=== PATIENT | male | born 2000 | race African-American/Black ===

== ENCOUNTER 2018-08-09 00:13 | Emergency (ER) | payer MEDICAID ==
[~2018-08-09] VITALS: Ht 195.6 cm; Wt 163.6 kg
[2018-08-09] MEDS ORDERED: ONDANSETRON HCL 4MG TABLET PO ONE (03:15)
[2018-08-09] MEDS: HYDROCODONE/APAP 7.5/325MG 1 TAB TABLET PO PRN ×2 (03:20→03:21)
[2018-08-09 05:47] VITALS: BP 125/85
== END 2018-08-09 06:01 | disposition home or self-care (01) ==
LOC: ER 00:13
DX: S46.912A Strain of unspecified muscle, fascia and tendon at shoulder and upper arm level, left arm, initial encounter (principal); M54.2 Cervicalgia; V49.49XA Driver injured in collision with other motor vehicles in traffic accident, initial encounter; Y93.89 Activity, other specified; Y92.410 Unspecified street and highway as the place of occurrence of the external cause
CPT/HCPCS: 73030; 99284; Q0162; Z7610

== ENCOUNTER 2019-01-12 23:17 | Emergency (ER) | payer MEDICAID ==
[~2019-01-12] VITALS: Ht 195.6 cm; Wt 129.0 kg
[2019-01-13] MEDS ORDERED: SODIUM CHLORIDE 0.9% 1,000 ML IV ONE (02:15)
[2019-01-13] MEDS ORDERED: ONDANSETRON HCL 4MG/2ML INJ IV STA (02:15)
[2019-01-13] MEDS ORDERED: MORPHINE SULFATE 4 MG/ML CPJ (NOT FOR IM USE) IV STA (02:15)
[2019-01-13 02:31] LABS: BASOPHILS % 0.7 % (0.0-2.0); HEMATOCRIT. 44.2 % (42.0-52.0); LYMPHOCYTES % 22.4 % (20.0-50.0); MEAN CORPUSCULAR HEMOGLOBIN 26.2 pg (28.0-32.0); MEAN CORPUSCULAR VOLUME 82.7 fL (80.0-94.0); MEAN PLATELET VOLUME 9.4 fl (7.4-10.4); MONOCYTES % 7.7 % (2.0-8.0); NEUTROPHILS % 67.2 % (40.0-76.0); PLATELET 306 x1000/uL (130-400); RED BLOOD CELL COUNT 5.34 mill/uL (4.7-6.1); RED CELL DISTRIBUTION WIDTH 14.6 % (11.6-14.6)
[2019-01-13 02:38] LABS: CHLORIDE 100 mEq/L (98-107)
[2019-01-13 02:39] LABS: INR 1.1
[2019-01-13 03:46] LABS: CLARITY URINE CLEAR (CLEAR); COLOR URINE YELLOW (YELLOW); KETONES URINE 3+ (NEGATIVE); LEUKOCYTE ESTERASE URINE NEGATIVE (NEGATIVE); NITRITE URINE NEGATIVE (NEGATIVE); OCCULT BLOOD URINE NEGATIVE (NEGATIVE); PH URINE 5.5 (4.5-8.0); PROTEIN URINE NEGATIVE (NEGATIVE); SPECIFIC GRAVITY URINE 1.043 (1.005-1.030); UROBILINOGEN URINE 0.2 E.U./dL (0.2-1.0)
[2019-01-13] MEDS ORDERED: IOHEXOL-300 100 ML BOTTLE ONE (05:27)
[2019-01-13 07:07] VITALS: BP 131/58
== END 2019-01-13 07:09 | disposition home or self-care (01) ==
LOC: ER 23:17
DX: R10.31 Right lower quadrant pain (principal); R73.9 Hyperglycemia, unspecified; R03.0 Elevated blood-pressure reading, without diagnosis of hypertension
CPT/HCPCS: 36415; 74177; 76857; 80053; 81003; 82010; 82962; 85025; 85610; 96361; 96374; 96375; 99284; J2270; J2405; J7030; Q9967